=== PATIENT | male | born 1955 | race Two or more races ===

== ENCOUNTER 2024-03-31 06:58 | Day surgery (SDC) | payer OTHER ==
[2024-03-27 09:25] LABS: HEMATOCRIT 35.4 % (39.0-48.0); HEMOGLOBIN 12.2 g/dL (13-16.00); MEAN CELL VOLUME 90.7 fL (80.0-100.00); MEAN CORPUSCULAR HEMOGLOBIN 31.3 pg (27.00-32.0); MEAN CORPUSCULAR HGB CONC 34.5 g/dl (32.0-36.0); PLATELET COUNT 258 K/uL (150-450); RED BLOOD COUNT 3.91 M/uL (4.00-6.00); RED CELL DISTRIBUTION WIDTH 13.5 % (11.5-14.5)
[2024-03-27 09:27] LABS: URINE APPEARANCE Clear; URINE BILIRRUBIN Negative (NEGATIVE); URINE BLOOD Negative; URINE COLOR Yellow; URINE GLUCOSE Negative (NEGATIVE); URINE LEUKOCYTE Negative; URINE NITRATE Negative; URINE PROTEIN Trace (NEGATIVE); URINE UROBILINOGEN 0.2 E.U./dl
[2024-03-27 09:28] LABS: URINE BACTERIA 36.5 uL (0.0-1933); URINE WBC 2.4 uL (0.0-23.2)
[2024-03-27 10:04] LABS: INR 0.98; PARTIAL THROMBOPLASTIN TIME 26.2 SECONDS (22.0-34.0); PROTHROMBIN TIME 10.3 SECONDS (9.0-11.5)
[2024-03-27 10:16] LABS: ALBUMIN 3.9 gm/dL (3.4-5.0); BILIRUBIN TOTAL 0.43 mg/dL (0.3-1.2); CALCIUM 9.6 mg/dL (8.5-10.1); CREATININE SERUM 1.08 mg/dL (0.70-1.30); GFR 67.59; POTASSIUM 4.74 mEq/L (3.5-5.1); TOTAL PROTEIN 7.9 gm/dL (6.4-8.2)
[2024-03-27 10:31] LABS: URINE RBC 1.8 uL (0.0-20.8)
[~2024-03-31 06:58] MED LIST: FAMOTIDINE40 MG; JANUVIA100 MG; LISINOPRIL2.5 MG; PERCOCET 5-3251 EACH PO; PRESERVISION A1 EAC1
[2024-03-31] MEDS ORDERED: CEFAZOLIN SODIUM 1,000 MG in 0.9 % SODIUM CHLORIDE 50 ML IV ONE (09:00)
[2024-03-31] MEDS ORDERED: TRAM1TAB98 PO (09:11)
[2024-03-31] MEDS ORDERED: LIDOCAINE HCL 1%/EPINEPHRINE 20ML VIAL IJ ONE (09:15)
[2024-03-31] MEDS ORDERED: BUPIVACAINE HCL 30 ML VIAL IJ ONE (09:15)
[2024-03-31] MEDS ORDERED: HEPARIN SODIUM,PORCINE 500 UNITS/5 ML VIAL IV ONE (09:15)
== END 2024-03-31 11:00 | disposition home or self-care (01) ==
LOC: CIR.AMB 06:58
PROVIDERS: ATTEND Surgery
DX: C18.0 Malignant neoplasm of cecum (principal); E11.9 Type 2 diabetes mellitus without complications; I11.9 Hypertensive heart disease without heart failure; I77.4 Celiac artery compression syndrome; I10 Essential (primary) hypertension; D64.9 Anemia, unspecified
CPT/HCPCS: 36561; C1751

== ENCOUNTER 2025-05-09 08:41 | Inpatient (IN) | payer OTHER ==
[~2025-05-09] VITALS: Ht 154.9 cm; Wt 63.5 kg
[~2025-05-09 08:41] MED LIST changes: +TRAM1TAB98 PO
[2025-05-09] MEDS ORDERED: LANTUS SOL100 UNIT/1 (08:57)
[2025-05-09] MEDS ORDERED: IRBESARTAN75 MG (08:57)
[2025-05-09] MEDS ORDERED: 0.9 % SODIUM CHLORIDE 1,000 ML IV STA (09:26)
[2025-05-09 09:44] LABS: BASO % 0.2 % (0.1-1.2); EOS # 0.14 (0.04-0.54); EOS % 1.2 % (0.7-7.0); LYMPH # 1.01 (1.18-3.74); LYMPH % 8.8 % (19.3-53.1); MEAN PLATELET VOLUME 9.30 fl (9.4-12.4); MONO # 1.32 (0.24-0.82); MONO % 11.5 % (4.7-12.5); NEUT # 8.87 (1.56-6.13); NEUT % 77.7 % (34.0-71.1); RED CELL DISTRIBUTION WIDTH 15.5 % (11.6-14.4)
[2025-05-09 09:46] LABS: ERYTHROCYTE SEDIMENTATION RATE > 130 mm/hr (0-20)
[2025-05-09 10:16] LABS: BUN CREA RATIO 25.0 (7.0-25.0); CREATININE SERUM 1.03 mg/dL (0.70-1.30); GFR 71.19
[2025-05-09 10:18] LABS: GLUCOSE FASTING 245.0 mg/dL (65-100); OSMOLALITY SERUM 287.0 MOSM/KG (275-295)
[2025-05-09 10:19] LABS: URINE APPEARANCE Clear; URINE BILIRRUBIN Small (NEGATIVE); URINE BLOOD Negative; URINE COLOR Dark Yellow; URINE GLUCOSE Negative (NEGATIVE); URINE KETONE Trace (NEGATIVE); URINE LEUKOCYTE Trace; URINE NITRATE Negative; URINE UROBILINOGEN 2.0 E.U./dl
[2025-05-09 10:20] LABS: URINE BACTERIA 13.1 uL (0.0-1933); URINE EPITHELIAL CELLS 6.4 uL (0.0-38.8); URINE RBC 3.5 uL (0.0-20.8)
[2025-05-09 10:26] LABS: URINE CAST 0.29 uL (0.0-1.40); URINE PROTEIN 100 (NEGATIVE); URINE WBC 1.5 uL (0.0-23.2)
[2025-05-09] MEDS ORDERED: SODIUM CHLORIDE 0.45 % 1,000 ML IV SCH (11:30)
[2025-05-09] MEDS ORDERED: VANCOMYCIN HCL 1,000 MG VIAL IV SCH (11:31)
[2025-05-09] MEDS ORDERED: FAMOtidine 10 MG/ML (4ML VIAL) IV SCH (11:32)
[2025-05-09] MEDS ORDERED: TRAMADOL HCL 50 MG TABLET PO PRN (11:45)
[2025-05-09] MEDS ORDERED: HYOSCYAMINE SULFATE 0.125 MG TAB.SUBL SL PRN (11:45)
[2025-05-09] MEDS ORDERED: PIPERACILLIN/TAZOBACTAM SODIUM 3.375 GM in 0.9 % SODIUM CHLORIDE 100 ML IV SCH (12:00)
[2025-05-09] MEDS ORDERED: FAMOTIDINE/PF 20 MG/2 ML VIAL IV SCH (13:25)
[2025-05-09] MEDS ORDERED: INSULIN LISPRO 1,000 UNIT/10 ML UNITS SUBCUTANEO PRN (15:00)
[2025-05-09] MEDS ORDERED: ENALAPRILAT DIHYDRATE 1.25 MG/ML VIAL IV PRN (15:00)
[2025-05-09] MEDS ORDERED: DEXTROSE 50 % IN WATER 0.5 G/ML VIAL IV PRN (15:00)
[2025-05-09] MEDS ORDERED: VANCOMYCIN HCL 1,000 MG VIAL ONE (15:37)
[2025-05-09 16:57] LABS: INR 1.09
[2025-05-09] MEDS ORDERED: Cyanocobalamin/Mecobalamin 1 TAB.SL SL SCH (17:00)
[2025-05-09] MEDS ORDERED: SOD FERRIC GLUC COMPLX/SUCROSE 62.5 MG in 0.9 % SODIUM CHLORIDE 50 ML IV SCH (17:00)
[2025-05-09] MEDS ORDERED: ENOXAPARIN SODIUM 40 MG/0.4 ML SYRINGE SUBCUTANEO SCH (17:00)
[2025-05-09 17:01] VITALS: BP 137/78; O2SAT 97
[2025-05-09 19:40] VITALS: BP 151/80; O2SAT 98
[2025-05-09] MEDS ORDERED: ACETAMINOPHEN 500 MG GEL..CAP PO SCH (20:09)
[2025-05-09] MEDS ORDERED: CLONAZEPAM 0.5 MG TABLET PO SCH (21:00)
[2025-05-10 01:24] VITALS: BP 101/76; O2SAT 98
[2025-05-10] MEDS ORDERED: VANCOMYCIN HCL 1,000 MG VIAL ONE ×2 (06:31→15:27)
[2025-05-10] MEDS ORDERED: SODIUM CL 0.9% 100 ML IV.SOLN IV ONE (06:31)
[2025-05-10 08:35] VITALS: BP 131/71; O2SAT 97
[2025-05-10] MEDS ORDERED: IRBESARTAN 75 MG TABLET PO SCH (09:00)
[2025-05-10 10:12] LABS: BASO % 0.1 % (0.1-1.2); EOS # 0.16 (0.04-0.54); EOS % 1.7 % (0.7-7.0); LYMPH # 0.97 (1.18-3.74); LYMPH % 10.5 % (19.3-53.1); MEAN PLATELET VOLUME 10.40 fl (9.4-12.4); MONO # 1.00 (0.24-0.82); MONO % 10.9 % (4.7-12.5); NEUT # 6.99 (1.56-6.13); NEUT % 76.0 % (34.0-71.1); RED CELL DISTRIBUTION WIDTH 15.5 % (11.6-14.4)
[2025-05-10 10:37] LABS: BUN CREA RATIO 24.0 (7.0-25.0); CREATININE SERUM 0.75 mg/dL (0.70-1.30); GFR 102.66; GLUCOSE FASTING 66.0 mg/dL (65-100); OSMOLALITY SERUM 279.0 MOSM/KG (275-295)
[2025-05-10 16:00] VITALS: BP 132/87; O2SAT 97
[2025-05-10] MEDS ORDERED: INSULIN GLARGINE,HUM.REC.ANLOG 1,000 UNITS/10 ML UNITS SUBCUTANEO SCH (21:00)
[2025-05-11 02:53] VITALS: BP 125/75; O2SAT 96
[2025-05-11] MEDS ORDERED: VANCOMYCIN HCL 1,000 MG VIAL ONE (06:47)
[2025-05-11] MEDS ORDERED: OxyCODONE HCL 5 MG TABLET (ROXICODONE) PO PRN (08:00)
[2025-05-11] MEDS ORDERED: ACETAMINOPHEN 500 MG GEL..CAP PO SCH (08:00)
[2025-05-11] MEDS ORDERED: MORPHINE SULFATE 4 MG/ML CARTRIDGE IV PRN (08:00)
[2025-05-11] MEDS ORDERED: ONDANSETRON HCL 2 MG/ML VIAL IV PRN (08:00)
[2025-05-11] MEDS ORDERED: 0.9 % SODIUM CHLORIDE 1,000 ML IV SCH (08:00)
[2025-05-11] MEDS ORDERED: DEXTROSE 50 % IN WATER 0.5 G/ML VIAL IV PRN (08:00)
[2025-05-11] MEDS ORDERED: FAMOTIDINE/PF 20 MG/2 ML VIAL ONE (08:59)
[2025-05-11] MEDS ORDERED: CELECOXIB 200 MG CAPSULE PO SCH (09:00)
[2025-05-11] MEDS ORDERED: FAMOTIDINE/PF 20 MG/2 ML VIAL IV PUSH SCH (09:00)
[2025-05-11] MEDS ORDERED: HYOSCYAMINE SULFATE 0.125 MG TAB.SUBL SL SCH (09:00)
[2025-05-11 17:14] VITALS: BP 135/82; O2SAT 96
[2025-05-12 00:19] VITALS: BP 137/82; O2SAT 95
[2025-05-12 06:51] LABS: BASO % 0.1 % (0.1-1.2); EOS # 0.23 (0.04-0.54); EOS % 2.4 % (0.7-7.0); LYMPH # 1.09 (1.18-3.74); LYMPH % 11.4 % (19.3-53.1); MEAN PLATELET VOLUME 9.80 fl (9.4-12.4); MONO # 1.34 (0.24-0.82); NEUT # 6.82 (1.56-6.13); NEUT % 71.2 % (34.0-71.1); RED CELL DISTRIBUTION WIDTH 15.2 % (11.6-14.4)
[2025-05-12 07:10] LABS: MONO % 14.0 % (4.7-12.5)
[2025-05-12 07:16] LABS: BUN CREA RATIO 18.0 (7.0-25.0); CREATININE SERUM 0.84 mg/dL (0.70-1.30); GFR 90.07; GLUCOSE FASTING 168.0 mg/dL (65-100); OSMOLALITY SERUM 284.0 MOSM/KG (275-295)
[2025-05-12 08:00] VITALS: BP 126/72; O2SAT 96
[2025-05-12] MEDS ORDERED: AMINO ACIDS 1 EACH TABLET PO SCH (12:00)
[2025-05-12 16:00] VITALS: BP 120/75; O2SAT 96
[2025-05-12] MEDS ORDERED: ENOXAPARIN SODIUM 40 MG/0.4 ML SYRINGE SUBCUTANEO SCH (17:00)
[2025-05-13 00:52] VITALS: BP 118/73; O2SAT 96
[2025-05-13 08:00] VITALS: BP 150/89; O2SAT 97
[2025-05-13] MEDS ORDERED: PEPCID AC20 MG PO (08:07)
[2025-05-13] MEDS ORDERED: TRAM1TAB98 PO (08:07)
[2025-05-13] MEDS ORDERED: LINEZOLID600 MG PO (08:09)
[2025-05-13] MEDS ORDERED: ENOXAPARIN SODIUM 40 MG/0.4 ML SYRINGE SUBCUTANEO SCH (09:00)
== END 2025-05-13 14:57 | disposition home or self-care (01) | DRG 314 ==
LOC: ER 08:41 → SURH 12:24
PROVIDERS: Emergency Medicine; ADMIT Surgery; ATTEND Surgery
PROC: B246ZZZ Ultrasonography of Right and Left Heart (ICD-10-PCS; 2025-05-11)
PROC: 0JPV0WZ Removal of Totally Implantable Vascular Access Device from Upper Extremity Subcutaneous Tissue and Fascia, Open Approach (ICD-10-PCS; principal; 2025-05-11 07:00)
DX: T80.211A Bloodstream infection due to central venous catheter, initial encounter (principal); A41.9 Sepsis, unspecified organism; C79.51 Secondary malignant neoplasm of bone; C78.7 Secondary malignant neoplasm of liver and intrahepatic bile duct; C18.9 Malignant neoplasm of colon, unspecified; I10 Essential (primary) hypertension; E11.9 Type 2 diabetes mellitus without complications; Z92.21 Personal history of antineoplastic chemotherapy

== ENCOUNTER 2025-06-19 07:04 | Inpatient (IN) | payer OTHER ==
[~2025-06-19] VITALS: Ht 157.5 cm; Wt 52.2 kg
[~2025-06-19 07:04] MED LIST changes: +IRBESARTAN75 MG; +LANTUS SOL100 UNIT/1; +LINEZOLID600 MG PO; +PEPCID AC20 MG PO
[2025-06-19] MEDS ORDERED: INSULIN SYRING1 EA29 MC (07:26)
--- NOTE | 2025-06-19 07:30 | NUR ---
PACIENTE ALERTA Y ORIENTADO X3. REFIERE VENIR POR REFERIDO DE DR MOODY. SAVI REFIERE DISTENCION ABDOMINAL DESDE HACE UNOS STEVENS. SE ESTIMAN VITALES Y SE UBICA.
--- NOTE | 2025-06-19 09:42 | NUR ---
SE EDUCA A PACIENTE SOBRE TRATAMIENTO MEDICO EL CUAL REFIERE ENTENDER, SE REALIZA BAHMAN DE M[place] TERESA ORDEN MEDICA Y BAJO MEDIDAS ASEPTICAS. SE MANTIENE BAJO OBSERVACION PARA CONTINUIDAD DE TRATAMIENTO.
[2025-06-19 09:45] LABS: BASO % 0.2 % (0.1-1.2); EOS # 0.09 (0.04-0.54); EOS % 0.7 % (0.7-7.0); LYMPH # 0.85 (1.18-3.74); LYMPH % 6.8 % (19.3-53.1); MEAN PLATELET VOLUME 8.80 fl (9.4-12.4); MONO # 1.10 (0.24-0.82); MONO % 8.8 % (4.7-12.5); NEUT # 10.37 (1.56-6.13); NEUT % 83.2 % (34.0-71.1); RED CELL DISTRIBUTION WIDTH 14.9 % (11.6-14.4)
[2025-06-19 10:10] LABS: INR 1.17
[2025-06-19 10:14] LABS: URINE APPEARANCE Clear; URINE BILIRRUBIN Small (NEGATIVE); URINE BLOOD Negative; URINE COLOR Dark Yellow; URINE GLUCOSE Negative (NEGATIVE); URINE KETONE Trace (NEGATIVE); URINE LEUKOCYTE Trace; URINE NITRATE Negative; URINE PROTEIN 30 (NEGATIVE); URINE UROBILINOGEN 1.0 E.U./dl
[2025-06-19 10:17] LABS: ALT/SGPT 39.0 U/L (12-78); AST/SGOT 70.0 U/L (15-37); BILIRUBIN TOTAL 1.38 mg/dL (0.3-1.2); BILIRUBIN,CONJUGATED 1.01 mg/dL (0.0-0.2); BUN CREA RATIO 22.0 (7.0-25.0); CREATININE SERUM 0.92 mg/dL (0.70-1.30); GFR 81.1; GLOBULINA 6.3 G/DL (2.4-3.5); GLUCOSE FASTING 133.0 mg/dL (65-100); OSMOLALITY SERUM 284.0 MOSM/KG (275-295)
[2025-06-19 10:19] LABS: URINE BACTERIA 10.7 uL (0.0-1933); URINE EPITHELIAL CELLS 7.0 uL (0.0-38.8); URINE RBC 2.6 uL (0.0-20.8); URINE WBC 1.8 uL (0.0-23.2)
[2025-06-19 10:46] LABS: URINE CAST 0.43 uL (0.0-1.40)
[2025-06-19] MEDS ORDERED: DEXTROSE 50 % IN WATER 0.5 G/ML DISP.SYRIN IV PRN (14:00)
[2025-06-19] MEDS ORDERED: INSULIN LISPRO 1,000 UNIT/10 ML UNITS SUBCUTANEO PRN (14:00)
[2025-06-19] MEDS ORDERED: ENALAPRILAT DIHYDRATE 1.25 MG/ML VIAL IV PRN (14:15)
[2025-06-19 16:00] VITALS: BP 144/89; O2SAT 99
[2025-06-20 02:55] VITALS: BP 121/79; O2SAT 98
[2025-06-20 07:34] LABS: BASO % 0.3 % (0.1-1.2); EOS # 0.32 (0.04-0.54); EOS % 2.8 % (0.7-7.0); LYMPH # 1.22 (1.18-3.74); LYMPH % 10.8 % (19.3-53.1); MEAN PLATELET VOLUME 9.60 fl (9.4-12.4); MONO # 1.42 (0.24-0.82); NEUT # 8.23 (1.56-6.13); NEUT % 73.1 % (34.0-71.1); RED CELL DISTRIBUTION WIDTH 14.7 % (11.6-14.4)
[2025-06-20 07:44] LABS: MONO % 12.6 % (4.7-12.5)
[2025-06-20 08:50] VITALS: BP 133/80; O2SAT 100
[2025-06-20] MEDS ORDERED: IRBESARTAN 75 MG TABLET PO SCH (09:00)
[2025-06-20] MEDS ORDERED: IRBESARTAN 75 MG TABLET PO NR (10:30)
[2025-06-20] MEDS ORDERED: MEROPENEM 500 MG in 0.9 % SODIUM CHLORIDE 50 ML IV SCH (14:00)
[2025-06-20] MEDS ORDERED: MEROPENEM 500 MG/VIAL VIAL IV ONE ×3 (14:06→23:41)
[2025-06-20 18:35] VITALS: BP 141/83; O2SAT 100
[2025-06-21 02:29] VITALS: BP 109/75; O2SAT 100
[2025-06-21] MEDS ORDERED: MEROPENEM 500 MG/VIAL VIAL IV ONE ×4 (08:51→23:45)
[2025-06-21] MEDS ORDERED: IRBESARTAN 75 MG TABLET PO SCH (09:00)
[2025-06-21 09:43] VITALS: BP 143/83; O2SAT 99
[2025-06-21 18:59] VITALS: BP 120/73; O2SAT 98
[2025-06-22 02:30] VITALS: BP 134/84; O2SAT 96
[2025-06-22] MEDS ORDERED: MEROPENEM 500 MG/VIAL VIAL IV ONE ×3 (07:50→16:21)
[2025-06-22 09:24] VITALS: BP 123/79; O2SAT 100
[2025-06-22 15:54] LABS: URINE APPEARANCE Clear; URINE BILIRRUBIN Small (NEGATIVE); URINE BLOOD Negative; URINE COLOR Dark Yellow; URINE GLUCOSE Negative (NEGATIVE); URINE KETONE Trace (NEGATIVE); URINE LEUKOCYTE Negative; URINE NITRATE Negative; URINE PROTEIN 30 (NEGATIVE); URINE UROBILINOGEN 1.0 E.U./dl
[2025-06-22 15:57] LABS: URINE BACTERIA 10.7 uL (0.0-1933); URINE CAST 2.05 uL (0.0-1.40); URINE EPITHELIAL CELLS 4.6 uL (0.0-38.8); URINE WBC 1.9 uL (0.0-23.2)
[2025-06-22 16:05] VITALS: BP 132/83
[2025-06-22 17:19] LABS: URINE RBC 0.8 uL (0.0-20.8)
[2025-06-22] MEDS ORDERED: INSULIN GLARGINE,HUM.REC.ANLOG 1,000 UNITS/10 ML UNITS SUBCUTANEO SCH (21:00)
[2025-06-22 21:16] LABS: BILI PERITONEAL FLUID 0.43 mg/dl; GLU PERITONEAL FLUID 181.0 mg/dl; LDH PERITONEAL FLUID 62.0 U/L; TP PERITONEAL FLUID 2.4 g/dl
[2025-06-23] MEDS ORDERED: MEROPENEM 500 MG/VIAL VIAL IV ONE (00:18)
[2025-06-23 02:34] VITALS: BP 128/75; O2SAT 95
[2025-06-23 05:37] LABS: INR 1.19
[2025-06-23 05:42] LABS: ALT/SGPT 36.0 U/L (12-78); AST/SGOT 71.0 U/L (15-37); BILIRUBIN TOTAL 0.93 mg/dL (0.3-1.2); BUN CREA RATIO 26.0 (7.0-25.0); CREATININE SERUM 0.85 mg/dL (0.70-1.30); GFR 88.85; GLOBULINA 4.8 G/DL (2.4-3.5)
[2025-06-23 05:48] LABS: GLUCOSE FASTING 212.0 mg/dL (65-100); OSMOLALITY SERUM 287.0 MOSM/KG (275-295)
[2025-06-23 06:17] LABS: BASO % 0.2 % (0.1-1.2); EOS # 0.20 (0.04-0.54); EOS % 1.8 % (0.7-7.0); LYMPH # 1.01 (1.18-3.74); LYMPH % 8.9 % (19.3-53.1); MEAN PLATELET VOLUME 9.30 fl (9.4-12.4); MONO # 1.37 (0.24-0.82); NEUT # 8.70 (1.56-6.13); NEUT % 76.5 % (34.0-71.1); RED CELL DISTRIBUTION WIDTH 14.8 % (11.6-14.4)
[2025-06-23 06:44] LABS: MONO % 12.1 % (4.7-12.5)
[2025-06-23 11:01] VITALS: BP 117/70; O2SAT 97
[2025-06-23] MEDS ORDERED: LEVOFLOXACIN750 MG PO (13:13)
== END 2025-06-23 14:59 | DRG 436 ==
LOC: ER 07:04 → SEC-K 13:56 → MEDJ 15:40
PROVIDERS: Emergency Medicine; Internal Medicine Infectious Disease; Radiology Vascular & Interventional Radiology; ADMIT Internal Medicine Geriatric Medicine; ATTEND Internal Medicine Geriatric Medicine
PROC: 0W9G3ZZ Drainage of Peritoneal Cavity, Percutaneous Approach (ICD-10-PCS; principal; 2025-06-22)
DX: C78.7 Secondary malignant neoplasm of liver and intrahepatic bile duct (principal); C18.9 Malignant neoplasm of colon, unspecified; R18.0 Malignant ascites; I11.9 Hypertensive heart disease without heart failure; E11.9 Type 2 diabetes mellitus without complications; Z79.4 Long term (current) use of insulin